=== PATIENT | male | born 1965 | race Caucasian/White ===

== ENCOUNTER → 2020-08-02 17:02 | Outpatient (CLI) | payer OTHER, SELFPAY ==
--- NOTE | 2020-08-02 | DI.MRI.S_ITS ---
PROCEDURE: MR SHOULDER LT WO CON INDICATIONS: pain in left shoulder TECHNIQUE: Noncontrast oblique coronal T2 fast spin echo with fat saturation, oblique sagittal T1 spin echo and T2 fast spin echo with fat saturation, axial T1 spin echo and T2 fast spin echo with fat saturation through the shoulder. COMPARISON: None. FINDINGS: Image quality: Excellent. Rotator cuff: There is tendinosis and moderate grade articular and bursal surface partial thickness tear involving distal supraspinatus at its insertion on the humeral head extending to musculotendinous junction. Distal infraspinatus tendon is intact. Tendinosis and low-grade intrasubstance partial-thickness tear involving distal subscapularis is seen. Sagittal images demonstrate no significant muscle atrophy. Bones and bursae: No bone marrow contusions or fractures. Mild to moderate acromioclavicular joint osteoarthritic changes are seen with downward osteophyte formation depressing the musculotendinous junction of supraspinatus. Mild glenohumeral joint osteoarthritis is also seen. Moderate amount of subacromial-subdeltoid or subcoracoid bursal fluid is present. Capsule and soft tissues: There is fraying of superior anterior labrum at 12 to 2 o'clock position suggestive of superior anterior labral tear. The glenohumeral ligaments are intact. The long head of the biceps tendinosis and low-grade intrasubstance partial-thickness tear is seen. The rotator interval appears normal, without fibrosis. The coracohumeral ligament is normal in thickness. IMPRESSION: 1. Tendinosis and moderate grade articular and bursal surface partial thickness tear involving distal supraspinatus extending to musculotendinous junction. Tendinosis and low-grade intrasubstance partial-thickness tear involving distal subscapularis. 2. Mild to moderate acromioclavicular joint and glenohumeral joint osteoarthritis. Moderate amount of subacromial subdeltoid bursal fluid. 3. Suggestion of superior anterior labral tear at 12 to 2 o'clock position. 4. Tendinosis and low-grade intrasubstance partial-thickness tear involving proximal intra-articular portion of long head of biceps. Dictated by: German Abel M.D. on 08/03/2020 at 10:12 Approved by: German Abel M.D. on 08/03/2020 at 10:15
== END ==
PROVIDERS: Referring Provider Orthopaedic Surgery; Visit Provider Orthopaedic Surgery
DX: M25.512 Pain in left shoulder (principal); M75.112 Incomplete rotator cuff tear or rupture of left shoulder, not specified as traumatic; M19.012 Primary osteoarthritis, left shoulder; S46.112A Strain of muscle, fascia and tendon of long head of biceps, left arm, initial encounter
CPT/HCPCS: 73221